=== PATIENT | female | born 1990 | race Caucasian/White ===

== ENCOUNTER 2017-09-27 12:13 | Emergency (ER) | payer BC ==
[~2017-09-27] VITALS: Ht 177.8 cm; Wt 144.0 kg
[~2017-09-27 12:13] MED LIST: ALEVE D PO; AMOXICILLIN500 MG PO; AMOXICILLIN875 MG PO; AUGMENTIN875TAB PO; BACTRIM DS1 TAB PO; BIRTHCONTROL; CIPRO500 MG PO; CIPROFLOXACN500 MG PO; KEFLEX500 M1 PO; KEFLEX500 MG PO; LORATADINE10 M1; LOW-OGESTREL PO; MACRODANTIN100 MG PO; NAPROSYN500 MG PO; OB COMPLET2; OGESTREL OR; OMNICEF300 MG PO; PRE-NATAL PO; TAM75CAP; TRAMADOL HCL50 MG OR; TRAMADOL HCL50 MG PO; [UNRECOGNIZED DRUG - OTHER] TOP; no home meds
[2017-09-27] MEDS ORDERED: PRE-NATAL PO (12:24)
[2017-09-27 13:06] LABS: URINE BILIRUBIN - DIPSTICK NEGATIVE (NEGATIVE); URINE BLOOD DIPSTICK NEGATIVE (NEGATIVE); URINE COLOR YELLOW; URINE GLUCOSE - DIPSTICK NEGATIVE (NEGATIVE); URINE KETONE NEGATIVE (NEGATIVE); URINE LEUK ESTERASE NEGATIVE (NEGATIVE); URINE NITRITE - DIPSTICK NEGATIVE (Negative); URINE PROTEIN - DIPSTICK NEGATIVE (NEG-TRACE); URINE SPECIFIC GRAVITY <=1.005; URINE UROBILINOGEN - DIPSTICK 0.2 E.U./dL (0.2)
[2017-09-27 13:10] LABS: URINE CLARITY CLEAR
[2017-09-27 13:58] VITALS: BP 116/55
== END 2017-09-27 14:28 | disposition home or self-care (01) | DRG 781 ==
LOC: ED 12:13
PROVIDERS: Emergency Medicine
DX: O26.893 Other specified pregnancy related conditions, third trimester (principal); R10.2 Pelvic and perineal pain; Z3A.29 29 weeks gestation of pregnancy

== ENCOUNTER 2017-11-18 10:35 | Emergency (ER) | payer BC ==
[~2017-11-18] VITALS: Ht 177.8 cm; Wt 140.0 kg
[2017-11-18 11:02] VITALS: BP 152/83
== END 2017-11-18 11:57 | disposition left against medical advice (07) | DRG 951 ==
LOC: ED 10:35 → LWOBS 11:56
DX: Z91.19 Patient's noncompliance with other medical treatment and regimen (principal)

== ENCOUNTER 2018-01-25 14:19 | Observation (INO) | payer BC ==
[~2018-01-25] VITALS: Ht 177.8 cm; Wt 146.0 kg
[2018-01-25 02:50] VITALS: BP 149/87
[2018-01-25] MEDS ORDERED: MEDDOSEPAK PO (14:30)
[2018-01-25] MEDS ORDERED: PROAIR HFA108 MCG/AC IN (14:31)
[2018-01-25] MEDS ORDERED: CEPHALEXIN500 MG PO (14:31)
[2018-01-25 15:04] LABS: HEMATOCRIT 33.8 % (37.0-47.0); HEMOGLOBIN 11.1 g/dl (12.0-16.0); IMMATURE GRANULOCYTES 0.2 % (0.0-5.0); MEAN CELL VOLUME 91.8 fL CALC (80.0-100.0); MEAN CORPUSCULAR HGB 30.2 pG CALC (26.0-32.0); MEAN CORPUSCULAR HGB CONC 32.8 g/L CALC (32.0-36.0); NEUT# 8.33 thou/uL (2.00-7.15); RED BLOOD COUNT 3.68 mill/uL (4.20-5.60); RED CELL DISTRI WIDTH 13.3 % (11.5-15.5)
[2018-01-25 15:32] LABS: ALKALINE PHOSPHATASE 105 u/l (38-126); ANION GAP 13 (6-22 (CALC)); BILIRUBIN, TOTAL 0.5 mg/dL (0.0-1.4); BUN 14 mg/dL (7-17); BUN/CREATININE RATIO 18 (12-20 (CALC)); CARBON DIOXIDE 24 mmol/l (22-30); CHLORIDE 108 mmol/l (95-108); CREATININE 0.8 mg/dL (0.5-1.0); GFR > 60 ML/MIN (>=60 (CALC)); GFR FOR AFR.AMER. > 60 ML/MIN (>=60 (CALC)); POTASSIUM 3.9 mmol/l (3.5-5.1); SGOT/AST 36 u/l (14-36); SGPT/ALT 34 u/l (9-52); SODIUM 142 mmol/l (137-146)
[2018-01-25 19:57] LABS: INFLUENZA A NONE DETECTED (NONE DETECT); INFLUENZA B NONE DETECTED (NONE DETECT)
[2018-01-26 04:34] VITALS: BP 120/69
[2018-01-26 08:00] VITALS: BP 121/66
[2018-01-26 11:26] VITALS: BP 136/63
[2018-01-26] MEDS ORDERED: DUONEB IN (13:16)
== END 2018-01-26 15:18 | disposition home or self-care (01) | DRG 776 ==
LOC: ED 14:19 → ED-I 21:38 → ED 21:59 → MS2 22:06
PROVIDERS: Emergency Medicine; ADMIT General Practice; ATTEND General Practice
DX: O90.89 Other complications of the puerperium, not elsewhere classified (principal); R07.89 Other chest pain; O99.53 Diseases of the respiratory system complicating the puerperium; J06.9 Acute upper respiratory infection, unspecified; O99.215 Obesity complicating the puerperium; E66.01 Morbid (severe) obesity due to excess calories; Z84.89 Family history of other specified conditions
CPT/HCPCS: G0378

== ENCOUNTER 2018-02-28 22:48 | Emergency (ER) | payer BC ==
[~2018-02-28] VITALS: Ht 177.8 cm; Wt 147.2 kg
[~2018-02-28 22:48] MED LIST changes: +CEPHALEXIN500 MG PO; +DUONEB IN; +MEDDOSEPAK PO; +PROAIR HFA108 MCG/AC IN
[2018-02-28] MEDS ORDERED: PAXIL30 MG PO (22:57)
[2018-02-28 23:52] LABS: HEMATOCRIT 35.5 % (37.0-47.0); HEMOGLOBIN 11.6 g/dl (12.0-16.0); IMMATURE GRANULOCYTES 0.1 % (0.0-5.0); MEAN CELL VOLUME 89.9 fL CALC (80.0-100.0); MEAN CORPUSCULAR HGB 29.4 pG CALC (26.0-32.0); MEAN CORPUSCULAR HGB CONC 32.7 g/L CALC (32.0-36.0); NEUT# 3.37 thou/uL (2.00-7.15); RED BLOOD COUNT 3.95 mill/uL (4.20-5.60); RED CELL DISTRI WIDTH 13.6 % (11.5-15.5)
[2018-03-01 00:02] LABS: ALBUMIN 4.2 g/dL (3.2-5.0); ALKALINE PHOSPHATASE 107 u/l (38-126); AMYLASE 47 u/l (30-110); ANION GAP 15 (6-22 (CALC)); BILIRUBIN, TOTAL 0.5 mg/dL (0.0-1.4); BUN 17 mg/dL (7-17); BUN/CREATININE RATIO 19 (12-20 (CALC)); CARBON DIOXIDE 27 mmol/l (22-30); CHLORIDE 106 mmol/l (95-108); CREATININE 0.9 mg/dL (0.5-1.0); GFR > 60 ML/MIN (>=60 (CALC)); GFR FOR AFR.AMER. > 60 ML/MIN (>=60 (CALC)); LIPASE 154 u/l (23-300); POTASSIUM 3.8 mmol/l (3.5-5.1); SGOT/AST 34 u/l (14-36); SGPT/ALT 27 u/l (9-52); SODIUM 144 mmol/l (137-146); TOTAL PROTEIN 7.2 g/dL (6.3-8.2)
[2018-03-01] MEDS ORDERED: TRAMADOL HCL50 MG PO (00:49)
[2018-03-01] MEDS ORDERED: TORADOL PO (00:49)
[2018-03-01 01:14] VITALS: BP 96/68
== END 2018-03-01 01:14 | disposition home or self-care (01) | DRG 446 ==
LOC: ED 22:48
PROVIDERS: Family Medicine
DX: K81.0 Acute cholecystitis (principal)